=== PATIENT | female | born 1990 | race Caucasian/White ===

== ENCOUNTER → 2016-05-07 | Outpatient (CLI) | payer MEDICAID | END | disposition home or self-care (01) | LOC: RAD.S 11:00 | DX: O36.80X9 Pregnancy with inconclusive fetal viability, other fetus (principal); Z3A.11 11 weeks gestation of pregnancy ==

== ENCOUNTER → 2016-07-01 | Outpatient (CLI) | payer MEDICAID | END | disposition home or self-care (01) | LOC: RAD.S 13:00 | DX: Z36 Encounter for antenatal screening of mother (principal); Z3A.21 21 weeks gestation of pregnancy ==